=== PATIENT | female | born 1970 | race Hispanic/Latino ===

== ENCOUNTER 2016-07-22 13:53 | Emergency (ER) ==
[2016-07-22 14:06] VITALS: BP 124/59
--- NOTE | 2016-07-22 14:54 | PROVIDER DOCUMENTATION ---
HPI-Rash/Wound/ReCheck - General Chief Complaint: Rash Stated Complaint: RASH Time Seen by Provider: 07/22/16 14:46 Source: patient Allergies/Adverse Reactions: Allergies Allergy/AdvReac Type Severity Reaction Status Date / Time naproxen sodium * Allergy RASH Verified 06/02/16 13:12 [From Anaprox] Penicillins Allergy RASH Verified 06/02/16 13:12 rofecoxib [From Vioxx] Allergy NAUSEA/VOMI Verified 06/02/16 13:12 TING sulfamethoxazole Allergy RASH Verified 06/02/16 13:12 [From Bactrim] trimethoprim [From Bactrim] Allergy RASH Verified 06/02/16 13:12 Home Medications: Citalopram Hydrobromide [Celexa] 20 mg PO QHS 06/02/16 Divalproex E.r. [Depakote ER] 500 mg pe PO BID 06/02/16 Phenytoin [Dilantin] 100 mg PO TID 06/02/16 - History of Present Illness-Dermatology Nature of Presenting Problem: 45 y/o WF c/o rash under the axilla bilaterally that came back one week ago. States it is painful and itches. Tried antifungal creams, benedryl without relief. Had this back in May, and was given Nystatin, steroids and bendryl , which helped. Tried apple cider vinegar and that worked a little bit. Denies cough, congestion, respiratory symptoms. Denies new detergents or soaps Review of Systems - Adult - REVIEW OF SYSTEMS - ADULT Constitutional: reports: no symptoms reported. denies: chills, fever, fatique Eyes: reports: no symptoms reported. denies: blurred vision, double vision, eye pain Ears, Nose, Mouth & Throat: reports: no symptoms reported. denies: ear pain, nose pain, throat pain Cardiovascular: reports: no symptoms reported. denies: chest pain, palpitations Respiratory: reports: no symptoms reported. denies: cough, shortness of breath , wheezing Gastrointestinal: reports: no symptoms reported. denies: abdominal pain, diarrhea, nausea, vomiting Genitourinary: reports: no symptoms reported. denies: dysuria, discharge, frequency Musculoskeletal: reports: no symptoms reported. denies: bone pain, back pain, muscle aches Integumentary: reports: see HPI, itching, rash Neurological: reports: no symptoms reported. denies: headache/migraines Psychiatric: reports: no symptoms reported Endocrine: reports: no symptoms reported Hematologic/Lymphatic: reports: no symptoms reported Allergic/Immunologic: reports: no symptoms reported All Other Systems: Reviewed and Negative Past History - Adult - PAST MEDICAL HISTORY-ADULT Review of Records: reports: Old Records Reviewed, Nursing Assessment Review, Medications Reviewed, Social history reviewed & non-contributory. 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 on dangers of tobacco.: Discussed manners to quit use, and f/u contacts for add'l counseling. Substance Use: none/never Alcohol Use Frequency: never Physical Exam-General - PHYSICAL EXAM-ADULT Initial Vital Signs Reviewed: Yes - CONSTITUTIONAL General Appearance: appears well, alert, no apparent distress - EYES Eyes: PERRL/EOMI, pink conjunctivae - HEAD, EARS, NOSE, MOUTH & THROAT HENMT: normocephalic/atraumatic, moist mucous membranes, normal ENT inspection - NECK Neck: non-tender, full range of motion, supple, normal inspection. negative: lymphadenopathy - RESPIRATORY Respiratory: chest non-tender, lungs clear, normal breath sounds, no pleuratic chest pain, no respiratory distress, no accessory muscle use. negative: respiratory distress, decreased breath sounds, accessory muscle use, crackles, rales, rhonchi, wheezing - CARDIOVASCULAR Cardiovascular: normal peripheral pulses, regular rate, rhythm - LYMPHATIC Lymphatic: no adenopathy - MUSCULOSKELETAL Extremity: normal gait - SKIN Integumentary: normal color, normal turgor, warm/dry, rash (rasied, well demarcated, pruritic) - NEUROLOGIC Neurologic: grossly normal, no motor/sensory deficits - PSYCHIATRIC Psych/Mental Status: normal mood/affect, normal thought content, normal thought process, oriented x 3 Progress - PLAN OF CARE/RESULTS Progress/Plan/Lab Results: Vital Signs Temp Pulse Resp BP Pulse Ox 07/22/16 14:03 98.3 F 64 18 124/59 99 naproxen sodium * [From Anaprox] Allergy (Verified 06/02/16 13:12) RASH Penicillins Allergy (Verified 06/02/16 13:12) RASH rofecoxib [From Vioxx] Allergy (Verified 06/02/16 13:12) NAUSEA/VOMITING sulfamethoxazole [From Bactrim] Allergy (Verified 06/02/16 13:12) RASH trimethoprim [From Bactrim] Allergy (Verified 06/02/16 13:12) RASH Citalopram Hydrobromide [Celexa] 20 mg PO QHS 06/02/16 Diphenhydramine [Benadryl] 25 mg PO Q4-6H PRN PRN #20 capsule 06/02/16 Divalproex E.r. [Depakote ER] 500 mg pe PO BID 06/02/16 Methylprednisolone [Medrol Dosepak] 4 mg PO DIRECTED #1 package 06/02/16 Nystatin Ointment [Mycostatin Ointment] 1 applicatn TOP TID #4 tube 06/02/16 Phenytoin [Dilantin] 100 mg PO TID 06/02/16 Departure - Departure Time of Disposition Order: 14:54 DIAGNOSIS: Rash and nonspecific skin eruption Disposition: HOME 01 Certified Medical Emergency: Emergent Condition: Stable Additional Instructions: Follow up with Dr. Reed, french teacher. ED Follow Up Instructions: You have been treated by a care provider in the Emergency Department. These instructions are being provided to you so you can have an understanding of how to care for yourself upon discharge. Upon discharge from the Emergency Department, you are responsible for making arrangements for follow-up care by a physician of your choice. Take all prescribed medications as directed. Return to the Emergency Department immediately for any new or worsening symptoms. You may call the Physician Referral phone number at [phone] to obtain a list of Physicians who are taking new patients. Prescriptions: Clindamycin [Cleocin] 150 mg PO Q6HR #30 capsule Nystatin Ointment [Mycostatin Ointment] 1 applicatn TOP TID #1 tube Hydroxyzine Pamoate [Vistaril] 25 mg PO TID #30 capsule
== END 2016-07-22 15:08 | disposition home or self-care (01) ==
LOC: ED 13:53
DX: R21 Rash and other nonspecific skin eruption (principal); L29.9 Pruritus, unspecified; R56.9 Unspecified convulsions; F17.210 Nicotine dependence, cigarettes, uncomplicated; Z79.899 Other long term (current) drug therapy; Z71.6 Tobacco abuse counseling
CPT/HCPCS: 99281